=== PATIENT | male | born 1985 | race Caucasian/White ===

== ENCOUNTER 2021-10-30 11:56 | Outpatient (REF) | payer OTHER, SELFPAY ==
[2021-10-30 13:44] LABS: Hematocrit 49.3 % (42.0-52.0); Hemoglobin 16.8 g/dl (14.0-18.0); Mean Corpuscular HGB Conc 34.1 g/dl (31.0-36.0); Mean Corpuscular Hemoglobin 30.1 pg (27.0-33.0); Mean Corpuscular Volume 88.2 fL (80.0-98.0); Mean Platelet Volume 9.2 fL (9.4-12.4); Platelet Count 261 X10*3/uL (160-400); Red Blood Count 5.59 X10*6/uL (4.60-5.80); Red Cell Distribution Width 12.2 % (11.0-16.0)
[2021-10-30 13:53] LABS: Appearance Urine CLEAR; Color Urine YELLOW; Glucose Urine UA NEG (NEG); Leukocyte Esterase Urine NEG (NEG); Nitrite Urine NEG (NEG); Specific Gravity - Urine 1.025 (1.005-1.025); Urine Blood NEG (NEG); Urine Ketones NEG (NEG); Urine Protein NEG (NEG-TRACE)
[2021-10-30 14:17] LABS: RBC Urine 0-2 /HPF (0); WBC Urine 0-2 /HPF (0-4)
[2021-10-30 14:59] LABS: Alanine Aminotransferase 33 U/L (0-40); Albumin Level 4.4 g/dL (3.5-5.0); Alkaline Phosphatase 61 U/L (39-117); Anion Gap 11 (12-20); Aspartate Amino Transferase 23 U/L (5-37); Bilirubin Total 0.5 mg/dL (0.0-1.0); Blood Urea Nitrogen 14 mg/dL (9-16); Calcium 9.6 mg/dL (8.4-10.2); Carbon Dioxide 28 mmol/L (22-29); Chloride 105 mmol/L (96-108); Cholesterol 262 mg/dL; Estimated Glomerular Filt Rate > 60; Glucose Fasting 91 mg/dL (60-99); HDL Cholesterol 36 mg/dL; LDL Cholesterol Calculated 189 mg/dl; Potassium 3.8 mmol/L (3.3-5.1); Sodium 140 mmol/L (135-145); Total Protein 7.6 g/dL (6.5-8.0); Triglycerides 188 mg/dL
== END 2021-10-30 11:57 | disposition home or self-care (01) ==
LOC: HO.HMGCLDS 11:56
PROVIDERS: PCP Internal Medicine; Visit Provider Internal Medicine
DX: Z00.00 Encounter for general adult medical examination without abnormal findings (principal)
CPT/HCPCS: 36415; 80053; 80061; 81001; 85027

== ENCOUNTER 2022-01-02 12:23 | Outpatient (REF) | payer OTHER, SELFPAY ==
[2022-01-02 14:20] LABS: Alanine Aminotransferase 56 U/L (0-40); Albumin Level 4.3 g/dL (3.5-5.0); Alkaline Phosphatase 69 U/L (39-117); Anion Gap 10 (12-20); Aspartate Amino Transferase 31 U/L (5-37); Bilirubin Total 0.6 mg/dL (0.0-1.0); Blood Urea Nitrogen 14 mg/dL (9-16); Calcium 9.2 mg/dL (8.4-10.2); Carbon Dioxide 26 mmol/L (22-29); Chloride 105 mmol/L (96-108); Cholesterol 214 mg/dL; Estimated Glomerular Filt Rate > 60; Glucose Fasting 96 mg/dL (60-99); HDL Cholesterol 39 mg/dL; LDL Cholesterol Calculated 147 mg/dl; Potassium 4.1 mmol/L (3.3-5.1); Sodium 137 mmol/L (135-145); Total Protein 7.2 g/dL (6.5-8.0); Triglycerides 141 mg/dL
== END 2022-01-02 12:24 | disposition home or self-care (01) ==
LOC: HO.HMGCLDS 12:23
PROVIDERS: PCP Internal Medicine; Visit Provider Internal Medicine
DX: Z00.00 Encounter for general adult medical examination without abnormal findings (principal); E78.5 Hyperlipidemia, unspecified
CPT/HCPCS: 36415; 80053; 80061

== ENCOUNTER 2022-04-30 10:00 | Outpatient (REF) | payer OTHER, SELFPAY ==
[2022-04-30 12:22] LABS: Alanine Aminotransferase 37 U/L (0-40); Albumin Level 4.5 g/dL (3.5-5.0); Alkaline Phosphatase 64 U/L (39-117); Anion Gap 12 (12-20); Aspartate Amino Transferase 27 U/L (5-37); Blood Urea Nitrogen 17 mg/dL (9-16); Calcium 9.3 mg/dL (8.4-10.2); Carbon Dioxide 27 mmol/L (22-29); Chloride 104 mmol/L (96-108); Cholesterol 194 mg/dL; Estimated Glomerular Filt Rate > 60; Glucose Fasting 102 mg/dL (60-99); HDL Cholesterol 43 mg/dL; LDL Cholesterol Calculated 133 mg/dl; Potassium 4.5 mmol/L (3.3-5.1); Sodium 138 mmol/L (135-145); Total Protein 7.4 g/dL (6.5-8.0); Triglycerides 92 mg/dL
== END 2022-04-30 10:01 | disposition home or self-care (01) ==
LOC: HO.HMGCLDS 10:00
PROVIDERS: Visit Provider Internal Medicine
DX: E78.5 Hyperlipidemia, unspecified (principal)
CPT/HCPCS: 36415; 80053; 80061

== ENCOUNTER 2022-10-24 10:37 | Outpatient (REF) | payer OTHER, SELFPAY ==
[2022-10-24 14:15] LABS: MANUAL DIFF FLAG NO
[2022-10-24 14:25] LABS: Basophils Percent Auto 0.5 % (0-2); Eosinophils Absolute Auto 0.1 X10*3/uL (0.0-0.4); Eosinophils Percent Auto 0.9 % (0-4); Hematocrit 50.9 % (42.0-52.0); Hemoglobin 17.2 g/dl (14.0-18.0); Imm Gran Abs Auto 0.01 X10*3/uL (0.00-0.03); Imm Gran Pct Auto 0.2 % (0.0-0.4); Lymphocytes Absolute Auto 2.3 X10*3/uL (1.2-4.9); Lymphocytes Percent Auto 40.6 % (20-40); Mean Corpuscular HGB Conc 33.8 g/dl (31.0-36.0); Mean Corpuscular Hemoglobin 29.2 pg (27.0-33.0); Mean Corpuscular Volume 86.4 fL (80.0-98.0); Mean Platelet Volume 10.4 fL (9.4-12.4); Monocytes Absolute Auto 0.4 X10*3/uL (0.1-1.2); Monocytes Percent Auto 7.1 % (2-11); Neutrophils Absolute Auto 2.9 x10*3/uL (2.0-8.3); Neutrophils Percent Auto 50.7 % (45-73); Platelet Count 249 X10*3/uL (160-400); Red Blood Count 5.89 X10*6/uL (4.60-5.80); Red Cell Distribution Width 12.3 % (11.0-16.0); White Blood Count 5.7 X10*3/uL (4.8-10.8)
[2022-10-24 14:54] LABS: Alanine Aminotransferase 33 U/L (0-40); Albumin Level 4.6 g/dL (3.5-5.0); Alkaline Phosphatase 58 U/L (39-117); Anion Gap 13 (12-20); Aspartate Amino Transferase 34 U/L (5-37); Bilirubin Total 1.2 mg/dL (0.0-1.0); Blood Urea Nitrogen 16 mg/dL (9-16); Calcium 9.5 mg/dL (8.4-10.2); Carbon Dioxide 21 mmol/L (22-29); Chloride 107 mmol/L (96-108); Cholesterol 208 mg/dL; Estimated Glomerular Filt Rate > 60; Glucose Fasting 90 mg/dL (60-99); HDL Cholesterol 42 mg/dL; LDL Cholesterol Calculated 148 mg/dl; Potassium 4.4 mmol/L (3.3-5.1); Sodium 137 mmol/L (135-145); Triglycerides 92 mg/dL
== END 2022-10-24 10:38 | disposition home or self-care (01) ==
LOC: HO.HMGCLDS 10:37
PROVIDERS: PCP Internal Medicine; Visit Provider Internal Medicine
DX: E66.3 Overweight (principal); E78.5 Hyperlipidemia, unspecified
CPT/HCPCS: 36415; 80053; 80061; 85025

== ENCOUNTER 2023-10-27 08:27 | Outpatient (REF) | payer BC, SELFPAY ==
[2023-10-27 12:12] LABS: Estimated Average Glucose 105 mg/dL; Hemoglobin A1c % 5.3 % (<6.0)
[2023-10-27 13:03] LABS: Alanine Aminotransferase 24 U/L (0-40); Albumin Level 4.4 g/dL (3.5-5.0); Alkaline Phosphatase 61 U/L (39-117); Anion Gap 13 (12-20); Aspartate Amino Transferase 31 U/L (5-37); Bilirubin Total 0.7 mg/dL (0.0-1.0); Blood Urea Nitrogen 20 mg/dL (9-16); Calcium 9.3 mg/dL (8.4-10.2); Carbon Dioxide 27 mmol/L (22-29); Chloride 102 mmol/L (96-108); Cholesterol 214 mg/dL (<200); Estimated Glomerular Filt Rate > 60; Glucose Fasting 83 mg/dL (60-99); HDL Cholesterol 45 mg/dL (>40); LDL Cholesterol Calculated 155 mg/dL (<100); Potassium 4.3 mmol/L (3.3-5.1); Sodium 138 mmol/L (135-145); Total Protein 7.5 g/dL (6.5-8.0); Triglycerides 70 mg/dL (<150)
== END 2023-10-27 08:28 | disposition home or self-care (01) ==
LOC: HO.HMGCLDS 08:27
PROVIDERS: PCP Internal Medicine; Visit Provider Internal Medicine
DX: Z00.00 Encounter for general adult medical examination without abnormal findings (principal); E78.5 Hyperlipidemia, unspecified
CPT/HCPCS: 36415; 80053; 80061; 83036

== ENCOUNTER 2023-10-30 12:46 | Outpatient (AMB) | payer BC, OTHER, SELFPAY ==
--- NOTE | 2023-10-30 12:57 | MHC.PC.OV ---
Vital Signs 10/30/23 12:58 Height 6 ft Weight 246 lb BMI 33.4 BP 118/78 Blood Pressure Location Lt brachial Position Sitting Pulse 68 Pulse Source Pulse Oximeter Pulse Oximetry (%) 97 Oxygen Delivery Method Room Air Intake Visit Reasons: PE Intake Note: Pt is here today for PE. Allergies No Known Allergies Allergy (Verified 10/30/23 13:02) Medication List - Last Reconciled 10/30/23 by Vivian Antonio MD pravastatin 40 mg PO DAILY Tobacco use date assessed: 10/30/23 Dental Screening Dental Screen Date: 10/30/23 Did you have a dental visit in the last 12 months?: Yes Did you have a dental problem in the last 6 months where you did not have access to dental care?: No Was dental information given to patient?: Patient has dentist HPI PE HPI Details Pt presents for PE. Patient has not been compliant taking pravastatin regularly. His girlfriend noticed he has episodes of apnea while sleeping. [facility] Medical History Hyperlipidemia Annual physical exam Surgical History No pertinent past surgical history Family History Father No problems noted. Mother Breast cancer Paternal Grandfather Leukemia Brother No problems noted. Sister No problems noted. Mother Hyperlipidemia CAD (coronary artery disease) Hx of CABG Diabetes mellitus Social History Household Members Other:: single, lives with parents, nurse, exercise Housing: House Patient Tobacco Use Status: Never used Tobacco e-Cigarette/Vaping Use: Never Used Second Hand Smoke Exposure: No Current occupational status: employed Cognitive needs: No Hearing needs: No Vision needs: No Questionnaire PHQ-9 Over the last 2 weeks, how often have you been bothered by any of the following problems? 1. Little interest or pleasure in doing things: not at all 2. Feeling down, depressed, or hopeless: not at all 3. Trouble falling or staying asleep, or sleeping too much: not at all 4. Feeling tired or having little energy: not at all 5. Poor appetite or overeating: not at all 6. Feeling bad about yourself - or that you are a failure or have let yourself or your family down: not at all 7. Trouble concentrating on things, such as reading the newspaper or watching television: not at all 8. Moving or speaking so slowly that other people could have noticed. Or the opposite - being so fidgety or restless that you have been moving around a lot more than usual: not at all 9. Thoughts that you would be better off or of hurting yourself in some way: not at all Total score: 0 Depression Screening Interpretation: Negative Depression Screening Done: Yes Source: Developed by Drs. Darnell Hartmann, Odalys Luciano, Wallace Brewer and colleagues, with an educational yaneth from [employer] Thrive Questionnaire Date Thrive assessed: 10/30/23 I am a: Patient What is your living situation today?: I have a steady place to live Within the past 12 months, did the food you bought not last and you didn't have the money to get more?: Never true Within the past 12 months, did you worry whether your food would run out before you got money to buy more?: Never true Do you have trouble paying for medicines?: No Do you have trouble getting transportation to medical appointments?: No Do you have trouble paying your heating and electricity bill?: No Do you have trouble taking care of your child, family member or friend?: No Do you have trouble with day-to-day activities such as bathing, preparing meals, shopping, managing finances, etc.?: No Are you currently unemployed and looking for a job?: No Are you interested in more education?: No Please select the resources that you would like help with: None Currently or been in a relationship where the following occur: no concerns reported THRIVE Score: 0 AUDIT C Alcohol Use Questionnaire (AUDIT-C) 1. How often do you have a drink containing alcohol?: Never 3. How often do you have six or more drinks on one occasion?: Never Total Score: 0 IKE-7 AMB Questionnaire IKE-7 Date IKE - 7 assessed: 10/30/23 Feeling nervous, anxious, or on edge: 0 = Not at all Not being able to stop or control worryin = Not at all Worrying too much about different things: 0 = Not at all Trouble relaxin = Not at all Being so restless that it is hard to sit still: 0 = Not at all Becoming easily annoyed or irritable: 0 = Not at all Feeling afraid as if something awful might happen: 0 = Not at all Total IKE-7 score (0-4 normal; 5-9 mild; 10-14 moderate; 15-21 severe): 0 Source: Developed by Drs. Darnell Hartmann, Odalys Luciano, Wallace Brewer and colleagues, with an educational yaneth from [address] Review of Systems Const All systems reviewed & are unremarkable except as noted in HPI and below Eyes Reports no additional complaints ENT Reports no additional complaints Card Reports no additional complaints Resp Reports no additional complaints GI Reports no additional complaints Reports no additional complaints Physical exam (Primary Care) Vital Signs: Last Vital Signs Pulse 68 10/30/23 12:58 BP 118/78 10/30/23 12:58 Pulse Ox 97 10/30/23 12:58 Oxygen Delivery Method Room Air 10/30/23 12:58 BMI result Body Mass Index 33.4 Tobacco/Smoking Status: Tobacco use Status Tobacco use date assessed 10/30/23 10/30/23 13:04 Patient Tobacco Use Status Never used Tobacco 10/30/23 13:26 e-Cigarette/Vaping Use Never Used 10/30/23 13:26 PHQ-9: PHQ-9 Score PHQ-9: Total score 0 10/30/23 13:27 Depression Screening Interpretation: Negative Thrive Assessment: Date of Thrive Assessment Date Thrive assessed 10/30/23 10/30/23 13:04 Currently or been in a relationship where the following occur: no concerns reported Const General: no acute distress HENMT Ears: hearing grossly normal bilaterally Throat: Yes posterior oropharynx normal Eyes General: appearance normal, both eyes and all related structures Neck Neck: Yes no lymphadenopathy and Yes supple Resp Effort & Inspection: normal respiratory effort Auscultation: clear to auscultation bilaterally Cardio Rhythm: regular rhythm Heart sounds: S1 normal heart sound present and S2 normal heart sound present GI Inspection: Yes normal to inspection Palpation (GI): Soft to palpation Percussion: Yes normal to percussion Auscultation: normal bowel sounds Assessment and Plan Assessment & Plan (1) Sleep apnea: Code(s): G47.30 - Sleep apnea, unspecified Plan: Check sleep studies to evaluate (2) Hyperlipidemia: Code(s): E78.5 - Hyperlipidemia, unspecified Plan: Medication compliance discussed with the patient, check in 2 months lipid profile (3) Annual physical exam: Code(s): Z00.00 - Encounter for general adult medical examination without abnormal findings Plan: Well-balanced diet regular physical activity discussed with the patient Orders: Orders RT home sleep study Today G47.30 - Sleep apnea, unspecified Lipid Panel 2 Months E78.5 - Hyperlipidemia, unspecified Complete Blood Count Auto Diff 365 Days E66.3 - Overweight, E78.5 - Hyperlipidemia, unspecified Comprehensive [place]. Panel Fast 365 Days E66.3 - Overweight, E78.5 - Hyperlipidemia, unspecified Lipid Panel 365 Days E66.3 - Overweight, E78.5 - Hyperlipidemia, unspecified TSH reflex Free T4 365 Days E66.3 - Overweight, E78.5 - Hyperlipidemia, unspecified Medications: Refilled pravastatin 40 mg PO DAILY 90 tabs 3RF Coding Level of Care Code Est Pt Prev Care 18-39y(50646) Diagnoses Sleep apnea G47.30 Hyperlipidemia E78.5 Annual physical exam Z00.00
[2023-10-30 12:58] VITALS: BP 118/78; PULSE 68; O2SAT 97; BMI 33.4
== END 2023-10-30 15:03 | disposition home or self-care (01) ==
PROVIDERS: PCP Internal Medicine; Visit Provider Internal Medicine
DX: G47.30 Sleep apnea, unspecified (principal); E78.5 Hyperlipidemia, unspecified; Z00.00 Encounter for general adult medical examination without abnormal findings
CPT/HCPCS: 99395

== ENCOUNTER 2023-12-25 11:23 | Outpatient (REF) | payer BC, SELFPAY ==
[2023-12-25 13:31] LABS: Cholesterol 166 mg/dL (<200); HDL Cholesterol 49 mg/dL (>40); LDL Cholesterol Calculated 107 mg/dL (<100); Triglycerides 51 mg/dL (<150)
== END 2023-12-25 11:24 | disposition home or self-care (01) ==
LOC: HO.HMGCLDS 11:23
PROVIDERS: PCP Internal Medicine; Visit Provider Internal Medicine
DX: E78.5 Hyperlipidemia, unspecified (principal)
CPT/HCPCS: 36415; 80061

== ENCOUNTER 2023-12-29 12:16 | Outpatient (AMB) | payer BC, SELFPAY ==
--- NOTE | 2023-12-29 13:06 | MHC.PC.OV ---
Vital Signs 12/29/23 13:09 Height 6 ft Weight 238 lb BMI 32.3 BP 120/76 Blood Pressure Location Lt brachial Position Sitting Pulse 70 Pulse Source Pulse Oximeter Pulse Oximetry (%) 97 Oxygen Delivery Method Room Air Intake Visit Reasons: 2 month follow up Intake Note: Cassie is here today for 2 months follow up visit. Allergies No Known Allergies Allergy (Verified 12/29/23 13:12) Tobacco use date assessed: 12/29/23 HPI 2 month follow up HPI Details Pt presents for hyperlipid,stable on pravastatin. Patient did not have a sleep studies done yet [facility] Medical History Hyperlipidemia Annual physical exam Surgical History (Reviewed 10/30/23 @ 13: by Vivian Antonio MD) No pertinent past surgical history Family History Father No problems noted. Mother Breast cancer Paternal Grandfather Leukemia Brother No problems noted. Sister No problems noted. Mother Hyperlipidemia CAD (coronary artery disease) Hx of CABG Diabetes mellitus Social History Household Members Other:: single, lives with parents, nurse, exercise Housing: House Patient Tobacco Use Status: Never used Tobacco e-Cigarette/Vaping Use: Never Used Second Hand Smoke Exposure: No Current occupational status: employed Cognitive needs: No Hearing needs: No Vision needs: No Questionnaire Thrive Questionnaire Date Thrive assessed: 10/30/23 IKE-7 AMB Questionnaire IKE-7 Date IKE - 7 assessed: 10/30/23 Source: Developed by Drs. Darnell Hartmann, Odalys Luciano, Wallace Brewer and colleagues, with an educational yaneth from [employer]. Review of Systems Const All systems reviewed & are unremarkable except as noted in HPI and below Reports no additional complaints Eyes Reports no additional complaints ENT Reports no additional complaints Card Reports no additional complaints Resp Reports no additional complaints GI Reports no additional complaints Reports no additional complaints Physical exam (Primary Care) Vital Signs: Last Vital Signs Pulse 70 12/29/23 13:09 BP 120/76 12/29/23 13:09 Pulse Ox 97 12/29/23 13:09 Oxygen Delivery Method Room Air 12/29/23 13:09 BMI result Body Mass Index 32.3 Tobacco/Smoking Status: Tobacco use Status Tobacco use date assessed 12/29/23 12/29/23 13:13 Patient Tobacco Use Status Never used Tobacco 12/29/23 13:13 e-Cigarette/Vaping Use Never Used 12/29/23 13:13 Thrive Assessment: Date of Thrive Assessment Date Thrive assessed 10/30/23 12/29/23 13:13 Const General: no acute distress HENMT Head: Yes normal to inspection Neck Neck: Yes no lymphadenopathy and Yes supple Resp Effort & Inspection: normal respiratory effort Auscultation: clear to auscultation bilaterally Cardio Rhythm: regular rhythm Heart sounds: S1 normal heart sound present and S2 normal heart sound present Assessment and Plan Assessment & Plan (1) Hyperlipidemia: Code(s): E78.5 - Hyperlipidemia, unspecified Plan: Continue pravastatin (2) Sleep apnea: Code(s): G47.30 - Sleep apnea, unspecified Plan: Patient will schedule a sleep study Coding Level of Care Code Est Pt Level 3 (71679) Diagnoses Hyperlipidemia E78.5 Sleep apnea G47.30
[2023-12-29 13:09] VITALS: BP 120/76; PULSE 70; O2SAT 97; BMI 32.3
== END 2023-12-29 15:21 | disposition home or self-care (01) ==
PROVIDERS: PCP Internal Medicine; Visit Provider Internal Medicine
DX: E78.5 Hyperlipidemia, unspecified (principal); G47.30 Sleep apnea, unspecified
CPT/HCPCS: 99213

== ENCOUNTER → 2024-01-14 07:56 | Outpatient (REF) | payer BC, SELFPAY | LOC: HO.SL 07:56 | PROVIDERS: PCP Internal Medicine; Visit Provider Internal Medicine | DX: G47.33 Obstructive sleep apnea (adult) (pediatric) (principal) | CPT/HCPCS: 95806 ==

== ENCOUNTER → 2024-01-14 08:10 | Outpatient (BNV) | payer BC, SELFPAY | PROVIDERS: PCP Internal Medicine; Visit Provider Internal Medicine | DX: G47.33 Obstructive sleep apnea (adult) (pediatric) (principal) | CPT/HCPCS: 95806 ==

== ENCOUNTER 2024-11-11 11:17 | Outpatient (REF) | payer BC, SELFPAY ==
--- OUTSIDE RECORDS SUMMARY | 2024-11-11 12:20 | XMS_ITS | Clinical Summary ---
Author Organization [facility] ity Address [address] [place] [address] Care Team Providers Care Cell Coverer Name Role Phone Unavailable Primary Care Provider Unavailabl e Social History Tobacco Use Types Packs/Day Years Used Date Smoking Tobacco: Never Assessed Sex and Gender Information Value Date Recorded Sex Assigned at Not on file Gender Identity Not on file Sexual Orientation Not on file Plan of Treatment Health Maintenance Due Date Last Done Comments DTaP,Tdap,and Td Vaccines (1 - Tdap) 12/22/2003 Hepatitis B Vaccines (1 of 3 - 19+ 3-dose series) 12/22/2003 COVID-19 Vaccine (2023-2 5 season) 2024 Influenza Vaccine (#1) 2024 HIB Vaccines Aged Out No longer eligi ble based on patient's age to complete this topic HPV Vaccines Aged Out No longer eligi ble based on patient's age to complete this topic Hepatitis A Vaccines Aged Out No long er eligible based on patient's age to complete this topic IPV Vaccines Aged Out No longer eligi ble based on patient's age to complete this topic MMR Vaccines Aged Out No longer eligi ble based on patient's age to complete this topic Meningococcal ACWY Vaccine Aged Out N o longer eligible based on patient's age to complete this topic Pneumococcal Vaccine: Pediat rics (0 to 5 Years) and At-Risk Patients (6 to 64 Years) Aged Out No longer eligible b ased on patient's age to complete this topic RSV Immunization Patients Un david 20 months Aged Out No longer eligible b ased on patient's age to complete this topic Varicella Vaccines Aged Out No longer eligible based on patient's age to complete this topic
[2024-11-11 13:36] LABS: MANUAL DIFF FLAG NO
[2024-11-11 13:51] LABS: Basophils Percent Auto 0.6 % (0-2); Eosinophils Percent Auto 0.6 % (0-4); Hematocrit 47.5 % (42.0-52.0); Hemoglobin 16.2 g/dl (14.0-18.0); Imm Gran Abs Auto 0.01 X10*3/uL (0.00-0.03); Imm Gran Pct Auto 0.2 % (0.0-0.4); Lymphocytes Absolute Auto 2.4 X10*3/uL (1.2-4.9); Lymphocytes Percent Auto 48.2 % (20-40); Mean Corpuscular HGB Conc 34.1 g/dl (31.0-36.0); Mean Corpuscular Hemoglobin 30.1 pg (27.0-33.0); Mean Corpuscular Volume 88.1 fL (80.0-98.0); Mean Platelet Volume 9.4 fL (9.4-12.4); Monocytes Absolute Auto 0.4 X10*3/uL (0.1-1.2); Neutrophils Absolute Auto 2.1 x10*3/uL (2.0-8.3); Neutrophils Percent Auto 42.4 % (45-73); Platelet Count 237 X10*3/uL (160-400); Red Blood Count 5.39 X10*6/uL (4.60-5.80); Red Cell Distribution Width 12.1 % (11.0-16.0)
[2024-11-11 14:19] LABS: Alanine Aminotransferase 44 U/L (0-40); Albumin Level 4.6 g/dL (3.5-5.0); Alkaline Phosphatase 57 U/L (39-117); Anion Gap 13 (12-20); Aspartate Amino Transferase 38 U/L (5-37); Bilirubin Total 0.7 mg/dL (0.0-1.0); Blood Urea Nitrogen 19 mg/dL (9-16); Calcium 9.6 mg/dL (8.4-10.2); Carbon Dioxide 25 mmol/L (22-29); Chloride 104 mmol/L (96-108); Cholesterol 217 mg/dL (<200); Estimated Glomerular Filt Rate > 60; Glucose Fasting 95 mg/dL (60-99); HDL Cholesterol 46 mg/dL (>40); LDL Cholesterol Calculated 152 mg/dL (<100); Potassium 4.2 mmol/L (3.3-5.1); Sodium 138 mmol/L (135-145); TSH reflex Free T4 0.14 uIU/mL (0.32-4.0); Total Protein 8.1 g/dL (6.5-8.0); Triglycerides 97 mg/dL (<150)
[2024-11-11 14:54] LABS: Free T4 (Free Thyroxine) 0.94 ng/dL (0.71-1.85)
== END 2024-11-11 11:18 | disposition home or self-care (01) ==
LOC: HO.HMGCLDS 11:17
PROVIDERS: PCP Internal Medicine; Visit Provider Internal Medicine
DX: E78.5 Hyperlipidemia, unspecified (principal); E66.3 Overweight
CPT/HCPCS: 36415; 80053; 80061; 84439; 84443; 85025

== ENCOUNTER 2024-11-15 13:09 | Outpatient (AMB) | payer BC, SELFPAY ==
[2024-11-15 13:09] VITALS: BP 122/82; PULSE 81; RESP 20; TEMP 36.7; O2SAT 97; BMI 33.4
--- NOTE | 2024-11-15 13:09 | MHC.PC.OV ---
Vital Signs 11/15/24 13:09 Height 6 ft Weight 246 lb BMI 33.4 BP 122/82 Blood Pressure Location Lt brachial Position Sitting Respiration 20 Pulse 81 Pulse Source Pulse Oximeter Temp 98.0 F Temp Source Oral Pulse Oximetry (%) 97 Oxygen Delivery Method Room Air Intake Visit Reasons: Annual PE Intake Note: Pt is here today for PE. Allergies No Known Allergies Allergy (Verified 11/15/24 13:16) Medication List - Last Reconciled 11/15/24 by Vivian Antonio MD CPAP (CPAP Machine/Device) Auto PAP pressure 6-20 cm pravastatin 40 mg PO DAILY Tobacco use date assessed: 11/15/24 Dental Screening Dental Screen Date: 11/15/24 Did you have a dental visit in the last 12 months?: Yes Did you have a dental problem in the last 6 months where you did not have access to dental care?: No Was dental information given to patient?: Patient has dentist HPI Annual PE HPI Details Pt presents for PE. Patient had a sleep study last year consistent with moderate sleep apnea but never followed up to get CPAP PFSH Medical History (Updated 11/15/24 @ 13:57 by Vivian Antonio MD) Hyperlipidemia Annual physical exam Surgical History No pertinent past surgical history Family History Father No problems noted. Mother Breast cancer Paternal Grandfather Leukemia Brother No problems noted. Sister No problems noted. Mother Hyperlipidemia CAD (coronary artery disease) Hx of CABG Diabetes mellitus Social History Household Members Other:: single, lives with parents, nurse, exercise Housing: House Patient Tobacco Use Status: Never used Tobacco e-Cigarette/Vaping Use: Never Used Second Hand Smoke Exposure: No service: No Current occupational status: employed Cognitive needs: No Hearing needs: No Vision needs: No Questionnaire PHQ-9 Over the last 2 weeks, how often have you been bothered by any of the following problems? 1. Little interest or pleasure in doing things: not at all 2. Feeling down, depressed, or hopeless: not at all 3. Trouble falling or staying asleep, or sleeping too much: not at all 4. Feeling tired or having little energy: not at all 5. Poor appetite or overeating: not at all 6. Feeling bad about yourself - or that you are a failure or have let yourself or your family down: not at all 7. Trouble concentrating on things, such as reading the newspaper or watching television: not at all 8. Moving or speaking so slowly that other people could have noticed. Or the opposite - being so fidgety or restless that you have been moving around a lot more than usual: not at all 9. Thoughts that you would be better off or of hurting yourself in some way: not at all Total score: 0 Depression Screening Interpretation: Negative Depression Screening Done: Yes 21449 - PHQ-9 Billing: Yes Source: Developed by Drs. Darnell Hartmann, Odalys Luciano, Wallace Brewer and colleagues, with an educational yaneth from [employer]. Thrive Questionnaire Date Thrive assessed: 11/15/24 I am a: Patient What is your living situation today?: I have a steady place to live Within the past 12 months, did the food you bought not last and you didn't have the money to get more?: Never true Within the past 12 months, did you worry whether your food would run out before you got money to buy more?: Never true Do you have trouble paying for medicines?: No Do you have trouble getting transportation to medical appointments?: No Do you have trouble paying your heating and electricity bill?: No Do you have trouble taking care of your child, family member or friend?: No Do you have trouble with day-to-day activities such as bathing, preparing meals, shopping, managing finances, etc.?: No Are you currently unemployed and looking for a job?: No Are you interested in more education?: No Please select the resources that you would like help with: None THRIVE Score: 0 AUDIT C Alcohol Use Questionnaire (AUDIT-C) 1. How often do you have a drink containing alcohol?: Never 3. How often do you have six or more drinks on one occasion?: Never Total Score: 0 IKE-7 AMB Questionnaire IKE-7 Date IKE - 7 assessed: 11/15/24 Feeling nervous, anxious, or on edge: 0 = Not at all Not being able to stop or control worryin = Not at all Worrying too much about different things: 0 = Not at all Trouble relaxin = Not at all Being so restless that it is hard to sit still: 0 = Not at all Becoming easily annoyed or irritable: 0 = Not at all Feeling afraid as if something awful might happen: 0 = Not at all Total IKE-7 score (0-4 normal; 5-9 mild; 10-14 moderate; 15-21 severe): 0 Source: Developed by Drs. Darnell Hartmann, Odalys Luciano, Wallace Brewer and colleagues, with an educational yaneth from [employer]. IKE-7 Assessment Billing IKE-7 Assessment Tool: IKE-7 Assessment 31633 Review of Systems Const All systems reviewed & are unremarkable except as noted in HPI and below Reports no additional complaints Eyes Reports no additional complaints ENT Reports no additional complaints Card Reports no additional complaints Resp Reports no additional complaints GI Reports no additional complaints Reports no additional complaints Physical exam (Primary Care) Vital Signs: Last Vital Signs Temp 98.0 F 11/15/24 13:09 Pulse 81 11/15/24 13:09 Resp 20 11/15/24 13:09 BP 122/82 11/15/24 13:09 Pulse Ox 97 11/15/24 13:09 Oxygen Delivery Method Room Air 11/15/24 13:09 BMI result Body Mass Index 33.4 Tobacco/Smoking Status: Tobacco use Status Tobacco use date assessed 11/15/24 11/15/24 13:23 Patient Tobacco Use Status Never used Tobacco 11/15/24 13:23 e-Cigarette/Vaping Use Never Used 11/15/24 13:10 PHQ-9: PHQ-9 Score PHQ-9: Total score 0 11/15/24 13:23 Depression Screening Interpretation: Negative Thrive Assessment: Date of Thrive Assessment Date Thrive assessed 11/15/24 11/15/24 13:23 Const General: no acute distress HENMT Head: Yes normal to inspection Ears: hearing grossly normal bilaterally General nose exam: Normal external nose present Face and sinus: Yes normal facial exam Throat: Yes posterior oropharynx normal Eyes General: appearance normal, both eyes and all related structures Neck Neck: Yes no lymphadenopathy and Yes supple Resp Effort & Inspection: normal respiratory effort Auscultation: clear to auscultation bilaterally Cardio Rhythm: regular rhythm Heart sounds: S1 normal heart sound present and S2 normal heart sound present GI Inspection: Yes normal to inspection Palpation (GI): Soft to palpation Percussion: Yes normal to percussion Auscultation: normal bowel sounds Coding Level of Care Code Est Pt Prev Care 18-39y(81608) Diagnoses Annual physical exam Z00.00 Hyperlipidemia E78.5 Sleep apnea G47.30 Additional Codes IKE-7 Assessment Billing - IKE-7 Assessment Tool: IKE-7 Assessment 82383 ([id number]) PHQ-9 - 14508 - PHQ-9 Billing: Yes ([id number]) Assessment & Plan Assessment & Plan (1) Annual physical exam: Code(s): Z00.00 - Encounter for general adult medical examination without abnormal findings Category: Medical Plan: Well-balanced diet regular physical activity weight loss discussed with the patient. (2) Hyperlipidemia: Code(s): E78.5 - Hyperlipidemia, unspecified Category: Medical Plan: Continue low-cholesterol diet , restart pravastatin check lipid profile in 3 months (3) Sleep apnea: Comment: sleep study 01/2024 mod sleep apnea, auto Cpap pressure 6-20 cm recommended Code(s): G47.30 - Sleep apnea, unspecified Category: Medical Plan: Start auto CPAP at a pressure 6-20 cm and follow-up in 3 months Orders: Orders Lipid Panel 3 Months E78.5 - Hyperlipidemia, unspecified, Z00.00 - Encounter for general adult medical examination without abnormal findings Comprehensive [place]. Panel Fast 3 Months E78.5 - Hyperlipidemia, unspecified, Z00.00 - Encounter for general adult medical examination without abnormal findings Medications: New CPAP (CPAP Machine/Device) Auto PAP pressure 6-20 cm 1 ea 0RF G47.30 - Sleep apnea, unspecified Refilled pravastatin 40 mg PO DAILY 90 tabs 3RF
== END 2024-11-15 13:56 | disposition home or self-care (01) ==
PROVIDERS: PCP Internal Medicine; Visit Provider Internal Medicine
DX: Z00.00 Encounter for general adult medical examination without abnormal findings (principal); E78.5 Hyperlipidemia, unspecified; G47.30 Sleep apnea, unspecified

== ENCOUNTER → 2024-11-15 13:09 | Outpatient (BNVA) | payer BC, SELFPAY | PROVIDERS: PCP Internal Medicine; Visit Provider Internal Medicine | DX: Z00.00 Encounter for general adult medical examination without abnormal findings (principal); E78.5 Hyperlipidemia, unspecified; G47.30 Sleep apnea, unspecified | CPT/HCPCS: 96127 ==

== ENCOUNTER 2025-02-16 08:30 | Outpatient (REF) | payer BC, SELFPAY ==
--- OUTSIDE RECORDS SUMMARY | 2025-02-16 08:51 | XMS_ITS | Clinical Summary ---
Author Organization [facility] ity Address [address] [place] [address] Care Team Providers Care Diagnostic Sales Specialist Name Role Phone Unavailable Primary Care Provider Unavailabl e Social History Tobacco Use Types Packs/Day Years Used Date Smoking Tobacco: Never Assessed Sex and Gender Information Value Date Recorded Sex Assigned at Not on file Legal Sex Male 11:04 PM EST Gender Identity Not on file Sexual Orientation Not on file Plan of Treatment Health Maintenance Due Date Last Done Comments DTaP,Tdap,and Td Vaccines (1 - Tdap) 12/22/2003 Hepatitis B Vaccines (1 of 3 - 19+ 3-dose series) 12/22/2003 COVID-19 Vaccine (2023-2 5 season) 2024 Influenza Vaccine (Season Ended) 2025 HIB Vaccines Aged Out No longer eligi [...] patient's age to complete this topic Meningococcal B Vaccine Aged Out No l onger eligible based on patient's age to complete [...]
[2025-02-16 10:57] LABS: Alanine Aminotransferase 45 U/L (0-40); Albumin Level 4.4 g/dL (3.5-5.0); Anion Gap 13 (12-20); Aspartate Amino Transferase 38 U/L (5-37); Bilirubin Total 0.8 mg/dL (0.0-1.0); Blood Urea Nitrogen 17 mg/dL (9-16); Calcium 9.2 mg/dL (8.4-10.2); Carbon Dioxide 26 mmol/L (22-29); Chloride 103 mmol/L (96-108); Cholesterol 191 mg/dL (<200); Estimated Glomerular Filt Rate > 60; Glucose Fasting 102 mg/dL (60-99); HDL Cholesterol 46 mg/dL (>40); LDL Cholesterol Calculated 126 mg/dL (<100); Potassium 3.9 mmol/L (3.3-5.1); Sodium 138 mmol/L (135-145); Total Protein 7.3 g/dL (6.5-8.0); Triglycerides 95 mg/dL (<150)
[2025-02-16 11:09] LABS: Alkaline Phosphatase 53 U/L (39-117)
== END 2025-02-16 08:31 | disposition home or self-care (01) ==
LOC: HO.HMGCLDS 08:30
PROVIDERS: PCP Internal Medicine; Visit Provider Internal Medicine
DX: Z00.00 Encounter for general adult medical examination without abnormal findings (principal); E78.5 Hyperlipidemia, unspecified
CPT/HCPCS: 36415; 80053; 80061

== ENCOUNTER 2025-02-21 12:47 | Outpatient (AMB) | payer BC, SELFPAY ==
[2025-02-21 12:49] VITALS: BP 124/78; PULSE 75; RESP 18; O2SAT 96; BMI 33.6
--- NOTE | 2025-02-21 12:49 | MHC.PC.OV ---
Vital Signs 02/21/25 12:49 Height 6 ft Weight 248 lb BMI 33.6 BP 124/78 Blood Pressure Location Lt brachial Position Sitting Respiration 18 Pulse 75 Pulse Source Pulse Oximeter Pulse Oximetry (%) 96 Oxygen Delivery Method Room Air Intake Visit Reasons: 3m f/u - Reschedule Intake Note: Pt is here today for 3 months follow up visit. Allergies No Known Allergies Allergy (Verified 02/21/25 12:49) Medication List - Last Reconciled 02/21/25 by Vivian Antonio MD CPAP (CPAP Machine/Device) Auto PAP pressure 6-20 cm pravastatin 40 mg PO DAILY Tobacco use date assessed: 02/21/25 Dental Screening Dental Screen Date: 02/21/25 Did you have a dental visit in the last 12 months?: Yes Did you have a dental problem in the last 6 months where you did not have access to dental care?: No Was dental information given to patient?: Patient has dentist HPI 3m f/u - Reschedule HPI Details Patient presents for the follow-up of hyperlipidemia controlled on pravastatin. He complains of left elbow pain for last 2 weeks worse when trying to use it. Patient has been rock climbing and lifting weights for the last 4 months. ON LICENSE OF [facility] Medical History Hyperlipidemia Annual physical exam Surgical History No pertinent past surgical history Family History Father No problems noted. Mother Breast cancer Paternal Grandfather Leukemia Brother No problems noted. Sister No problems noted. Mother Hyperlipidemia CAD (coronary artery disease) Hx of CABG Diabetes mellitus Social History Household Members Other:: single, lives with parents, nurse, exercise Housing: House Patient Tobacco Use Status: Never used Tobacco e-Cigarette/Vaping Use: Never Used Second Hand Smoke Exposure: No service: No Current occupational status: employed Cognitive needs: No Hearing needs: No Vision needs: No Questionnaire Thrive Questionnaire Date Thrive assessed: 11/15/24 I am a: Patient What is your living situation today?: I have a steady place to live Within the past 12 months, did the food you bought not last and you didn't have the money to get more?: Never true Within the past 12 months, did you worry whether your food would run out before you got money to buy more?: Never true Do you have trouble paying for medicines?: No Do you have trouble getting transportation to medical appointments?: No Do you have trouble paying your heating and electricity bill?: No Do you have trouble taking care of your child, family member or friend?: No Do you have trouble with day-to-day activities such as bathing, preparing meals, shopping, managing finances, etc.?: No Are you currently unemployed and looking for a job?: No Are you interested in more education?: No Please select the resources that you would like help with: None Currently or been in a relationship where the following occur: No concerns reported THRIVE Score: 0 AUDIT C Alcohol Use Questionnaire (AUDIT-C) 1. How often do you have a drink containing alcohol?: Never 3. How often do you have six or more drinks on one occasion?: Never Total Score: 0 IKE-7 AMB Questionnaire IKE-7 Date IKE - 7 assessed: 11/15/24 Source: Developed by Drs. Darnell Hartmann, Odalys Luciano, Wallace Brewer and colleagues, with an educational yaneth from [employer]. Review of Systems Const All systems reviewed & are unremarkable except as noted in HPI and below Eyes Reports no additional complaints ENT Reports no additional complaints Card Reports no additional complaints Resp Reports no additional complaints GI Reports no additional complaints Reports no additional complaints Physical exam (Primary Care) Vital Signs: Last Vital Signs Pulse 75 02/21/25 12:49 Resp 18 02/21/25 12:49 BP 124/78 02/21/25 12:49 Pulse Ox 96 02/21/25 12:49 Oxygen Delivery Method Room Air 02/21/25 12:49 BMI result Body Mass Index 33.6 Tobacco/Smoking Status: Tobacco use Status Tobacco use date assessed 02/21/25 02/21/25 12:52 Patient Tobacco Use Status Never used Tobacco 02/21/25 12:52 e-Cigarette/Vaping Use Never Used 02/21/25 12:52 Thrive Assessment: Date of Thrive Assessment Date Thrive assessed 11/15/24 02/21/25 12:52 Currently or been in a relationship where the following occur: No concerns reported Const General: no acute distress Resp Effort & Inspection: normal respiratory effort Auscultation: clear to auscultation bilaterally Cardio Rhythm: regular rhythm Heart sounds: S1 normal heart sound present and S2 normal heart sound present GI Inspection: Yes normal to inspection Palpation (GI): Soft to palpation Percussion: Yes normal to percussion Auscultation: normal bowel sounds Coding Level of Care Code Est Pt Level 4 (29399) Diagnoses Elevated LFTs Hyperlipidemia E78.5 Sleep apnea G47.30 Assessment & Plan Assessment & Plan (1) Elevated LFTs: Code(s): - Other specified abnormal findings of blood chemistry Category: Medical Plan: Patient was advised to avoid eating simple carbohydrates and saturated fatty acids, increase physical activity and lose weight. Abdominal ultrasound will be obtained. LFTs will be rechecked in 4 months (2) Hyperlipidemia: Code(s): E78.5 - Hyperlipidemia, unspecified Category: Medical Plan: Continue pravastatin and low-cholesterol diet (3) Sleep apnea: Comment: sleep study 01/2024 mod severe sleep apnea, auto Cpap pressure 6-20 cm recommended Code(s): G47.30 - Sleep apnea, unspecified Category: Medical Plan: CPAP will be started, weight loss discussed with the patient. She is not interested in GLP 1 agonist Orders: Orders Comprehensive [place]. Panel Fast 4 Months - Other specified abnormal findings of blood chemistry US abdomen complete Today - Other specified abnormal findings of blood chemistry Hepatitis B,C Profile 4 Months - Other specified abnormal findings of blood chemistry Medications: Refilled CPAP (CPAP Machine/Device) Auto PAP pressure 6-20 cm 1 ea 0RF G47.30 - Sleep apnea, unspecified
--- OUTSIDE RECORDS SUMMARY | 2025-02-21 13:51 | XMS_ITS | Clinical Summary ---
Author Organization [facility] ity Address [address] [place] [address] Care Team Providers Care Privacy Attorney Name Role Phone Unavailable Primary Care Provider [...]
== END 2025-02-21 13:27 | disposition home or self-care (01) ==
LOC: HO.HMCC 12:48
PROVIDERS: PCP Internal Medicine; Visit Provider Internal Medicine
DX: R79.89 Other specified abnormal findings of blood chemistry (principal); E78.5 Hyperlipidemia, unspecified; G47.30 Sleep apnea, unspecified

== ENCOUNTER → 2025-02-21 12:47 | Outpatient (BNVA) | payer BC, SELFPAY | PROVIDERS: PCP Internal Medicine; Visit Provider Internal Medicine | DX: Z13.89 Encounter for screening for other disorder (principal) ==

== ENCOUNTER 2025-03-23 08:41 | Outpatient (REF) | payer BC, SELFPAY ==
--- NOTE | ~2025-03-23 | US_ITS ---
CLINICAL HISTORY: R79.89 - Other specified abnormal findings of blood chemistry US abdomen complete with color Doppler Comparison: None Findings: The visualized pancreas, aorta, and inferior vena cava are unremarkable. Liver normal size and slightly echogenic throughout. Right lobe 14.6 cm length. No focal hepatic masses. Common duct 3.4 mm diameter. Physiologic distention of the gallbladder. No gallstones or sludge. No gallbladder wall thickening. No pericholecystic fluid. No sonographic Rios sign. Main portal vein antegrade. Right kidney normal size, 10.7 cm in length. Normal cortical width and echotexture. No solid or cystic renal masses. No nephrolithiasis or hydronephrosis. Left kidney normal, 11.2 cm in length. Normal cortical width and echotexture. No solid or cystic renal masses. No nephrolithiasis or hydronephrosis. Spleen measures 12.6 cm. No splenic masses. No ascites. No lymphadenopathy. Impression: 1. Mild diffuse hepatic steatosis. This document has been electronically signed by: Nithin Daniels MD on 03/23/2025 11:53:52
--- OUTSIDE RECORDS SUMMARY | 2025-03-23 09:05 | XMS_ITS | Clinical Summary ---
Author Organization [facility] ity Address [address] [place] [address] Care Team Providers Care Cable Reeler Name Role Phone Unavailable Primary Care Provider [...]
== END 2025-03-23 08:42 | disposition home or self-care (01) ==
LOC: HO.HMGCX 08:41
PROVIDERS: PCP Internal Medicine; Visit Provider Internal Medicine
DX: R79.89 Other specified abnormal findings of blood chemistry (principal)
CPT/HCPCS: 76700

== ENCOUNTER → 2025-03-23 09:08 | Outpatient (BNV) | payer BC, SELFPAY | PROVIDERS: PCP Internal Medicine; Visit Provider Radiology Diagnostic Radiology | DX: R79.89 Other specified abnormal findings of blood chemistry (principal) | CPT/HCPCS: 76700 ==

== ENCOUNTER 2025-06-24 10:49 | Outpatient (REF) | payer BC, SELFPAY ==
--- OUTSIDE RECORDS SUMMARY | 2025-06-24 10:52 | XMS_ITS | Clinical Summary ---
Author Organization [facility] ity Address [address] [place] [address] Care Team Providers Care Convention Worker Name Role Phone Unavailable Primary Care Provider [...] of 3 - 19+ 3-dose series) 12/22/2003 Depression Screening 10/05/2024 COVID-19 Vaccine (1 - 2023-2 5 season) 2025 Influenza Vaccine (#1) 2025 HIB Vaccines Aged Out No longer [...] 5 Years) and At-Risk Patients (6 to 49 Years) Aged Out No longer eligible b ased on patient's age to complete this topic RSV Immunization Patients Un david 20 months Aged Out No longer eligible b ased on patient's age to complete this topic Varicella Vaccines Aged Out No longer eligible based on patient's age to complete this topic
--- OUTSIDE RECORDS SUMMARY | 2025-06-24 10:52 | XMS_ITS | Clinical Summary ---
Author Organization [facility] Address [address] [place] [address] Phone Care Team Providers Care Carpenter And Joiner Name Role Phone Vivian Antonio MD Primary Care Provider [phone] Immunizations Immunization Administration Dates Next Due COVID-19 (Pre-07/27) Pfizer Vaccine, mRNA, PF ,11/03/2020 MMR 04/21/2019,02/16/2019 Tdap 02/16/2019 Varicella 04/21/2019,03/16/2019 Social History Tobacco Use Types Packs/Day Years Used Date Smoking Tobacco: Never Assessed Education Answer Date Recorded Are you interested in more education? Not on padilla e 01/31/2023 Are you concerned about learning? Not on file 01/31/2023 No 01/31/2023 No 01/31/2023 Digital Access Answer Date Recorded No 03/01/2023 No 03/01/2023 No 03/01/2023 Reliable internet access at home? Not on file 03/01/2023 Device with a working camera? Not on file Sex and Gender Information Value Date Recorded Sex Assigned at Not on file Legal Sex Male 11:23 AM EDT Gender Identity Not on file Sexual Orientation Not on file Plan of Treatment Health Maintenance Due Date Last Done Comments LIPID PANEL 1984 DEPRESSION SCREENING 1996 SMOKING Hx and SMOKELESS TOBACCO SCREENING 1997 HEPATITIS C SCREENING 2002 HIV ONE-TIME SCREENING (18-65 YEARS) 2002 INFLUENZA VACCINE (#1) 2025 2, 07/04/2021, 07/05/2020, Additional history exists COVID-19 VACCINE (5 - 2025- season) 2025 08/01/2022, 02/04/2022, 11/24/2020, Additional history exists Adult Td,Tdap Booster 02/16/2029 02/16/2019 HEPATITIS A VACCINES Aged Out No long er eligible based on patient's age to complete this topic HIB VACCINES Aged Out No longer eligi ble based on patient's age to complete this topic MENINGOCOCCAL VACCINES (ACWY) Aged Out No longer eligible based on patient's age to complete this topic MENINGOCOCCAL VACCINES (B) Aged Out N o longer eligible based on patient's age to complete this topic PNEUMOCOCCAL VACCINES (0-49 years) Aged Out No longer eligible based on patient's age to complete this topic Medical Devices Not on file [place] [address] [place] [address] [place] [address] [place] [address] [place] [address] [place] [address] ACO Care Teams Carpenter And Joiner Relationship Specialty Start Date End Date Vivian Antonio MD [address] [place] [address] PCP - General Internal Medicine 06/13/21 Additional Source Comments The information contained in this document represents components of the legal health record. It is not the complete legal health record.[facility]
[2025-06-24 14:03] LABS: Alanine Aminotransferase 35 U/L (0-40); Albumin Level 4.7 g/dL (3.5-5.0); Alkaline Phosphatase 52 U/L (39-117); Anion Gap 10 (12-20); Aspartate Amino Transferase 31 U/L (5-37); Blood Urea Nitrogen 15 mg/dL (9-16); Calcium 9.3 mg/dL (8.4-10.2); Carbon Dioxide 27 mmol/L (22-29); Chloride 105 mmol/L (96-108); Estimated Glomerular Filt Rate > 60; Potassium 4.2 mmol/L (3.3-5.1); Sodium 138 mmol/L (135-145); Total Protein 7.3 g/dL (6.5-8.0)
[2025-06-24 14:32] LABS: HBS Num1 > 1000.00 mIU/mL (0-7.99); HBc Num1 0.07 S/CO (0.00-0.79); HBsAGNum1 0.49 S/CO (0.00-0.99); Hepatitis B Surface Antigen Negative (Negative); ~HepC Num1 0.05 S/CO (0.00-0.79); ~Hepatitis B Surface Antibody REACTIVE (Nonreactive); ~Hepatitis C Antibody Nonreactive (Nonreactive)
== END 2025-06-24 10:50 | disposition home or self-care (01) ==
LOC: HO.HMGCLDS 10:49
PROVIDERS: PCP Internal Medicine; Visit Provider Internal Medicine
DX: Z11.59 Encounter for screening for other viral diseases (principal); R79.89 Other specified abnormal findings of blood chemistry
CPT/HCPCS: 36415; 80053; 86704; 86706; 86803; 87340

== ENCOUNTER 2025-06-27 09:37 | Outpatient (AMB) | payer BC, SELFPAY ==
[2025-06-27 09:44] VITALS: BP 114/76; PULSE 64; RESP 18; TEMP 36.7; O2SAT 98; BMI 32.0
--- NOTE | 2025-06-27 09:44 | A.OFFPC_ITS ---
Vital Signs 06/27/25 09:44 Height 6 ft Weight 236 lb BMI 32.0 BP 114/76 Blood Pressure Location Rt brachial Position Sitting Respiration 18 Pulse 64 Pulse Source Pulse Oximeter Temp 98.0 F Temp Source Oral Pulse Oximetry (%) 98 Oxygen Delivery Method Room Air Intake Visit Reasons: 4 month follow up Intake Note: Pt is here today for 4 months follow up visit. Allergies No Known Allergies Allergy (Verified 06/27/25 09:44) Tobacco use date assessed: 06/27/25 Dental Screening Dental Screen Date: 02/21/25 HPI 4 month follow up HPI Details Patient presents for the follow-up of hyperlipidemia. He has been tolerating medication well following low-cholesterol diet and lost 20 lb in last 6 months. Patient has been using a CPAP for obstructive sleep apnea and reports feeling better with more energy and well rested [facility] Medical History Hyperlipidemia Annual physical exam Surgical History No pertinent past surgical history Family History Father No problems noted. Mother Breast cancer Paternal Grandfather Leukemia Brother No problems noted. Sister No problems noted. Mother Hyperlipidemia CAD (coronary artery disease) Hx of CABG Diabetes mellitus Social History Household Members Other:: single, lives with parents, nurse, exercise Housing: House Patient Tobacco Use Status: Never used Tobacco e-Cigarette/Vaping Use: Never Used Second Hand Smoke Exposure: No service: No Current occupational status: employed Cognitive needs: No Hearing needs: No Vision needs: No Questionnaire PHQ-9 Over the last 2 weeks, how often have you been bothered by any of the following problems? 1. Little interest or pleasure in doing things: not at all 2. Feeling down, depressed, or hopeless: not at all 3. Trouble falling or staying asleep, or sleeping too much: not at all 4. Feeling tired or having little energy: not at all 5. Poor appetite or overeating: not at all 6. Feeling bad about yourself - or that you are a failure or have let yourself or your family down: not at all 7. Trouble concentrating on things, such as reading the newspaper or watching television: not at all 8. Moving or speaking so slowly that other people could have noticed. Or the opposite - being so fidgety or restless that you have been moving around a lot more than usual: not at all 9. Thoughts that you would be better off or of hurting yourself in some way: not at all Total score: 0 Depression Screening Interpretation: Negative Depression Screening Done: Yes Source: Developed by Drs. Darnell Hartmann, Wallace Pratt and colleagues, with an educational yaneth from [employer]. Thrive Questionnaire Date Thrive assessed: 11/15/24 I am a: Patient What is your living situation today?: I have a steady place to live Within the past 12 months, did the food you bought not last and you didn't have the money to get more?: Never true Within the past 12 months, did you worry whether your food would run out before you got money to buy more?: Never true Do you have trouble paying for medicines?: No Do you have trouble getting transportation to medical appointments?: No Do you have trouble paying your heating and electricity bill?: No Do you have trouble taking care of your child, family member or friend?: No Do you have trouble with day-to-day activities such as bathing, preparing meals, shopping, managing finances, etc.?: No Are you currently unemployed and looking for a job?: No Are you interested in more education?: No Please select the resources that you would like help with: None Currently or been in a relationship where the following occur: No concerns reported THRIVE Score: 0 IKE-7 AMB Questionnaire IKE-7 Date IKE - 7 assessed: 11/15/24 Source: Developed by Drs. Darnell Hartmann, Odalys Luciano, Wallace Brewer and colleagues, with an educational yaneth from [employer]. Review of Systems Const All systems reviewed & are unremarkable except as noted in HPI and below Card Reports no additional complaints Resp Reports no additional complaints GI Reports no additional complaints Reports no additional complaints Physical exam (Primary Care) Vital Signs: Last Vital Signs Temp 98.0 F 06/27/25 09:44 Pulse 64 06/27/25 09:44 Resp 18 06/27/25 09:44 BP 114/76 06/27/25 09:44 Pulse Ox 98 06/27/25 09:44 Oxygen Delivery Method Room Air 06/27/25 09:44 BMI result Body Mass Index 32.0 Tobacco/Smoking Status: Tobacco use Status Tobacco use date assessed 06/27/25 06/27/25 09:46 Patient Tobacco Use Status Never used Tobacco 06/27/25 09:46 e-Cigarette/Vaping Use Never Used 06/27/25 09:46 PHQ-9: PHQ-9 Score PHQ-9: Total score 0 06/27/25 09:46 Depression Screening Interpretation: Negative Thrive Assessment: Date of Thrive Assessment Date Thrive assessed 11/15/24 06/27/25 09:46 Currently or been in a relationship where the following occur: No concerns reported Const General: no acute distress HENMT Face and sinus: Yes normal facial exam Resp Effort & Inspection: normal respiratory effort Auscultation: clear to auscultation bilaterally Cardio Rhythm: regular rhythm Heart sounds: S1 normal heart sound present and S2 normal heart sound present Coding Level of Care Code Est Pt Level 4 (13768) Diagnoses Hyperlipidemia E78.5 Sleep apnea G47.30 Assessment & Plan Assessment & Plan (1) Hyperlipidemia: Code(s): E78.5 - Hyperlipidemia, unspecified Category: Medical Plan: Continue pravastatin (2) Sleep apnea: Comment: sleep study 01/2024 mod severe sleep apnea, auto Cpap pressure 6-20 cm recommended Code(s): G47.30 - Sleep apnea, unspecified Category: Medical Plan: Continue CPAP
--- OUTSIDE RECORDS SUMMARY | 2025-06-27 11:26 | XMS_ITS | Clinical Summary ---
Author Organization [facility] ity Address [address] [place] [address] Care Team Providers Care Steam Shovel Operator Name Role Phone Unavailable Primary Care Provider [...]
== END 2025-06-27 15:57 | disposition home or self-care (01) ==
LOC: HO.HMCC 09:38
PROVIDERS: PCP Internal Medicine; Visit Provider Internal Medicine
DX: E78.5 Hyperlipidemia, unspecified (principal); G47.30 Sleep apnea, unspecified